=== PATIENT | male | born 1945 | race Caucasian/White ===

== ENCOUNTER → 2017-04-22 | Outpatient (CLI) | payer MEDICARE, OTHER ==
--- NOTE | ~2017-04-22 | CT5 ---
[facility] A Service of [facility] RADIOLOGY TEXT RESULTS PATIENT: PARESH SANABRIA LOCATION: [facility] : 43 UNIT #: [id number] AGE: [address]: Norbert Interiano MD SEX: M ORDER DR: [id number] [place] [id number] O MR#: [id number] Acc #: [id number] NAME: PARESH SANABRIA : 1945 SEX: M STUDY DATE/TIME: 04/22/2017 13:18 UNIT: [facility] ROOM: STUDY DESCRIPTION: CT Abdomen W Cont Attending Physician: Norbert Interiano M.D. Referring Physician: Norbert Interiano M.D. Ordering Physician: Norbert Interiano M.D. Primary Care Physician: Norbert Interiano M.D. MEDICAL IMAGING REPORT This report is preliminary unless electronic signature is present. EXAM CT abdomen with contrast INDICATIONS Fever for the past 2 weeks with elevated liver enzyme levels 3 days ago. PROCEDURE Contrast-enhanced CT of the abdomen and pelvis. This CT exam was performed with one or more of the following radiation dose reduction techniques: automatic exposure control, adjustment of mA and/or kV according to patient size, and iterative reconstruction. COMPARISON None FINDINGS Abdomen with contrast: Included lung bases are clear. Liver, spleen, adrenal glands, pancreas unremarkable. Cholelithiasis with no CT evidence for acute cholecystitis. The included bowel loops are non-dilated. Moderate colonic stool. Appendix is normal. 1.9 cm right renal cyst. No included bowel aggressive appearing bone lesion. IMPRESSION 1. No acute findings. 2. Cholelithiasis without CT evidence for acute inflammation. 3. Moderate colonic stool burden. Dictated by... Alon Glover M.D. THIS IS AN ELECTRONICALLY VERIFIED REPORT [facility] A Service [facility] RADIOLOGY TEXT RESULTS PATIENT: PARESH SANABRIA LOCATION: [facility] : 43 UNIT #: [id number] AGE: [address]: Norbert Interiano MD SEX: M ORDER DR: Alon Glover M.D. at 04/22/2017 10:23 PM EED/to TD: 04/22/2017 18:05 JOB #: [id number] MEDICAL IMAGING REPORT Page 1 of 1
[2017-04-22 12:20] LABS: POC - CREATININE 1.02 mg/dL (0.64-1.27); POC - GFR >60.0 mL/min (>60)
== END | disposition home or self-care (01) ==
LOC: SCT 12:03
PROVIDERS: Family Medicine
DX: R79.89 Other specified abnormal findings of blood chemistry (principal); R50.9 Fever, unspecified; K80.20 Calculus of gallbladder without cholecystitis without obstruction
CPT/HCPCS: 74160; 82565; Q9967